=== PATIENT | female | born 1960 | race Caucasian/White ===

== ENCOUNTER → 2016-10-08 | Outpatient (CLI) | payer OTHER ==
--- NOTE | 2016-10-08 16:58 | KCIC ---
Indication: Left thigh pain. Time of exam 4:27 PM Multiple views of the lumbar spine were obtained. Curvature and alignment is normal. The vertebral body heights are well-maintained. No acute compression fracture is seen. There is degenerative disc disease at the L5-S1 level with disc space narrowing and minimal marginal spurring. No definite spondylolysis or spondylolisthesis is identified. IMPRESSION: L5-S1 degenerative disc disease. No acute bony abnormality is detected. Electronically signed by: Shimon Sharma MD (10/08/2016 4:55 PM) [id number]
--- NOTE | 2016-10-08 16:58 | KCIC ---
Examination: 2 views of the left femur HISTORY: History of left thigh pain for one year COMPARISON: None available FINDINGS: The femoral head is within the acetabulum. Mild joint space loss identified in the left hip joint. There is no acute fracture or dislocation. There is a large osteophyte identified in the superior aspect of the patella IMPRESSION: 1. No acute osseous findings. 2. Mild degenerative change left hip joint. 3. Large osteophyte superior patellar region. Electronically signed by: Guille House MD (10/08/2016 4:55 PM) [id number]
--- NOTE | 2016-10-08 16:58 | KCIC ---
Indication: Chronic neck pain. Time of exam 4:33 PM 3 views of the cervical spine were obtained. There is straightening of the normal cervical lordotic curvature. The disc spaces are well-maintained. The prevertebral tissues are normal. The odontoid appears intact. No fractures are seen. IMPRESSION: Mild straightening. No acute bony abnormality is detected. Electronically signed by: Shimon Sharma MD (10/08/2016 4:54 PM) [id number]
== END | disposition home or self-care (01) ==
LOC: KCIC 15:49
PROVIDERS: ATTEND Nurse Practitioner Family
DX: M51.37 Other intervertebral disc degeneration, lumbosacral region (principal); M79.652 Pain in left thigh; M79.602 Pain in left arm; M54.2 Cervicalgia; G89.29 Other chronic pain
CPT/HCPCS: 72040; 72110; 73552

== ENCOUNTER → 2018-04-02 | Outpatient (CLI) | payer OTHER ==
--- NOTE | 2018-04-02 12:58 | KCIC ---
EXAM: Cervical spine, 3 views. HISTORY: Pain. COMPARISON: 10/08/2016. FINDINGS: There is slight reversal of cervical lordosis. There is no listhesis. The vertebral bodies are normal in height and the disc spaces are preserved. IMPRESSION: No acute osseous finding. Electronically signed by: Rosemarie Abdul MD (04/02/2018 12:54 PM) [id number]
== END | disposition home or self-care (01) ==
LOC: KCIC 12:31
PROVIDERS: ATTEND Nurse Practitioner Family
DX: M79.2 Neuralgia and neuritis, unspecified (principal)
CPT/HCPCS: 72040

== ENCOUNTER → 2018-10-22 | Outpatient (CLI) | payer OTHER ==
--- NOTE | 2018-10-22 16:50 | KCIC ---
Bilateral digital screening mammograms: Reason for examination: Routine screening. New baseline. Interpretation was made with the benefit of CAD. The skin and nipples show no abnormalities. No abnormal axillary lymph nodes are seen. The breast parenchyma shows scattered fibroglandular density. (Breast density: Category B.) There are no dominant masses, suspicious calcifications or architectural distortions. Some benign calcifications are present. Impression: No evidence of malignancy. Recommend routine screening. BI-RADS category 2: Benign "Our facility is accredited by the [employer] Mammography Program." This patient's information has been entered into a reminder system for the patient to be notified with the results of her examination and a target date for the next mammogram. Electronically signed by: Mari Argueta MD (10/22/2018 4:47 PM) [id number]
--- NOTE | 2018-10-22 17:08 | KCIC ---
Pelvic ultrasound HISTORY: Pelvic pain. Irregular bleeding. COMPARISON: None Note this is a technically limited exam due to patient large body habitus. Study interpreted without the benefit of real-time observation. Transabdominal scan: Uterus and adnexa are poorly seen. Endovaginal scan: Uterus measures 8.8 x 5.1 x 5.3 cm. Uterus appears overall heterogeneous. There are some echogenic reflectors in the region of the cervix likely calcification. Endometrium is poorly defined and appears thickened or enlarged, measuring about 2.9 cm thickness. The right and left ovaries are not visualized. No significant free fluid. IMPRESSION: 1. Technically limited exam due to body habitus. 2. Abnormal appearance centered at the endometrium. This could be due to endometrial thickening or fibroid. This does not appear to be grossly hypervascular, but other etiology such as endometrial mass, endometritis or endometrial hemorrhage are possible. Electronically signed by: Jason Valentin MD (10/22/2018 5:06 PM) [facility]
== END | disposition home or self-care (01) ==
LOC: KCIC US 09:48
PROVIDERS: ATTEND Family Medicine
DX: Z12.31 Encounter for screening mammogram for malignant neoplasm of breast (principal); N64.89 Other specified disorders of breast; R10.2 Pelvic and perineal pain; N92.6 Irregular menstruation, unspecified
CPT/HCPCS: 76830; 76856; 77067